=== PATIENT | female | born 1950 | race Two or more races ===

== ENCOUNTER 2017-07-23 11:10 | Emergency (ER) | payer MEDICAID, MEDICARE ==
--- NOTE | 2017-07-23 12:22 | RAD ---
HISTORY: Trauma, loss of consciousness COMPARISONS: None TECHNIQUE: Multiple contiguous axial CT scans were obtained of the head without intravenous contrast. FINDINGS: HEMORRHAGE/INFARCT: There is no hemorrhage or acute infarct. MASSES/SHIFT: There is no mass or shift. EXTRA-AXIAL SPACES: There are no extra-axial fluid collections. SULCI AND VENTRICLES: The sulci and ventricles are normal in size and position for the patient's stated age. CEREBRUM: There are no focal parenchymal abnormalities. BRAINSTEM: There are no focal parenchymal abnormalities. CEREBELLUM: There are no focal parenchymal abnormalities. VESSELS: The vessels are grossly normal. PARANASAL SINUSES: The paranasal sinuses are clear. ORBITS: The orbits are unremarkable. BONES AND SOFT TISSUE: No bone or soft tissue abnormalities are noted. OTHER: None IMPRESSION: NO ACUTE INTRACRANIAL PATHOLOGY.
--- NOTE | 2017-07-23 12:31 | ED ---
Nathan Mosquera Thomas, scribed for Stan Barron MD on 07/23/17 at 1124 . Head Injury - HPI Summary HPI Summary: The pt is a 67 y/o F presenting to the ED after she had LOC for a few seconds s/ p a fall from her chair that occurred today at 10:00. She fell backwards and struck her head on the floor. She says this is an accidental fall. Pt denies head pain, neck pain, back pain, nausea, or any other pain. She is not on blood thinners. PMHx: osteoarthritis. PSHx: breast surgery. SHx: no smoking, no alcohol use. FHx: CA. The patient is accompanied by her daughter, who acts as an linux security administrator because the patient speaks only Sierra Leonean. - History Of Current Complaint Chief Complaint: EDHeadInjury Stated Complaint: FALL/HIT HEAD Time Seen by Provider: 07/23/17 11:20 Hx Obtained From: Patient, Family/Psychiatric Tech - daughter is present, who acts as linux security administrator Mechanism Of Injury: Fall From Height Of: - fall from chair backwards Onset/Duration: Started Minutes Ago - fall was today at 10:00, Resolved Pain Intensity: 0 Pain Scale Used: 0-10 Numeric Aggravating Factor(s): Other: - None Alleviating Factor(s): Other: - Spontaneous resolution Associated Signs And Symptoms: LOC (Time In Secs./Mins/Hrs) - LOC for a few seconds, Other: - NEGATIVE: head pain, back pain, neck pain, nausea - Allergies/Home Medications Allergies/Adverse Reactions: Allergies Allergy/AdvReac Type Severity Reaction Status Date / Time No Known Allergies Allergy Verified 07/23/17 12:15 PMH/Surg Hx/FS Hx/Imm Hx Previously Healthy: No Cardiovascular History: Denies: Hx Myocardial Infarction Musculoskeletal History: Reports: Hx Arthritis - Cancer History Cancer Type, Location and Year: Skin cancer removal from nose - Surgical History Surgery Procedure, Year, and Place: breast surgery Infectious Disease History: No Infectious Disease History: Denies: Traveled Outside the [place] in Last 30 Days - Family History Known Family History: Positive: Other - [place] - Social History Alcohol Use: None Hx Substance Use: No Substance Use Type: Reports: None Hx Tobacco Use: No Smoking Status (MU): Never Smoked Tobacco Review of Systems Negative: Fever Negative: Nausea Negative: Other - NEGATIVE: head pain, back pain, neck pain Neurological: Other - Fall out of chair with LOC for a few seconds All Other Systems Reviewed And Are Negative: Yes Physical Exam Triage Information Reviewed: Yes Vital Signs On Initial Exam: Initial Vitals Temp Pulse Resp BP Pulse Ox 98.0 F 72 20 166/78 98 07/23/17 11:13 07/23/17 11:13 07/23/17 11:13 07/23/17 11:13 07/23/17 11:13 Vital Signs Reviewed: Yes Appearance: Positive: Well-Appearing, No Pain Distress Skin: Positive: Warm, Skin Color Reflects Adequate Perfusion Head/Face: Positive: Normal Head/Face Inspection Eyes: Positive: EOMI, SUNSHINE ENT: Positive: Normal ENT inspection Neck: Positive: Supple, Nontender Respiratory/Lung Sounds: Positive: Clear to Auscultation, Breath Sounds Present Cardiovascular: Positive: RRR. Negative: Murmur Abdomen Description: Positive: Nontender Musculoskeletal: Positive: Strength/ROM Intact Neurological: Positive: Sensory/Motor Intact, Alert, Oriented to Person Place, Time, CN Intact II-III, Normal Gait, Finger to Nose, Speech Normal Psychiatric: Positive: Normal - Ute Coma Scale Best Eye Response: 4 - Spontaneous Best Motor Response: 6 - Obeys Commands Best Verbal Response: 5 - Oriented Diagnostics - Vital Signs Vital Signs Temp Pulse Resp BP Pulse Ox 07/23/17 11:13 98.0 F 72 20 166/78 98 - Laboratory Lab Statement: Any lab studies that have been ordered have been reviewed, and results considered in the medical decision making process. - CT CT Brain CT Interpretation: No Acute Changes - CT Brain shows no acute intracranial pathology. ED physician has reviewed this report and agrees. CT Interpretation Completed By: Radiologist Head Injury Course/Dx Assessment/Plan: The pt is a 67 y/o F presenting to the ED after she had LOC for a few seconds s/p an accidental fall from her chair that occurred today in which she struck her head on the floor. Pt denies head pain, neck pain, back pain, nausea, or any pain. CT Brain shows no acute intracranial pathology. - Diagnoses Provider Diagnoses: Closed head injury, Hypertension Discharge - Discharge Plan Condition: Good Disposition: HOME Patient Education Materials: Head Injury (ED), Hypertension (ED) Referrals: Non Staff,Doctor [Primary Care Provider] - [facility] [place] [facility] [Outside] The documentation as recorded by the Nathan viadl Thomas accurately reflects the service I personally performed and the decisions made by me, Stan Barron MD.
[2017-07-23 12:48] VITALS: BP 162/70
== END 2017-07-23 12:47 | disposition home or self-care (01) ==
LOC: ED 11:10
DX: S09.90XA Unspecified injury of head, initial encounter (principal); I10 Essential (primary) hypertension; W08.XXXA Fall from other furniture, initial encounter; Y92.9 Unspecified place or not applicable; Z85.828 Personal history of other malignant neoplasm of skin
CPT/HCPCS: 70450; 99282

== ENCOUNTER 2018-11-29 14:37 | Inpatient (IN) | payer MEDICARE, MEDICAID ==
--- NOTE | 2018-11-29 15:09 | ED ---
Respiratory - HPI Summary HPI Summary: Pt is a 68 y/o F presenting to the ED with a chief respiratory complaint. She was born with one kidney so there are many medicines she cannot take. Pt reports cough onset about two weeks ago, fever with varying severity, intermittent dizziness, headache, and decreased appetite. On 11/27/18, she did not want to eat anything or shower. - History of Current Complaint Chief Complaint: EDFluSymptoms Stated Complaint: FLU LIKE SYMPTOMS Time Seen by Provider: 11/29/18 14:57 Hx Obtained From: Patient, Family/Boiler House Inspector - also furniture cleaner Onset/Duration: Gradual Onset, Lasting Weeks, Still Present Timing: Constant Initial Severity: Mild Current Severity: None Pain Intensity: 0 Character: Cough (Nonproductive), Dyspnea on Exertion Sputum Amount: None Aggravating Factor(s): Exertion, Movement, Deep Breaths Alleviating Factor(s): Nothing Associated Signs and Symptoms: Fever - Allergy/Home Medications Allergies/Adverse Reactions: Allergies Allergy/AdvReac Type Severity Reaction Status Date / Time No Known Allergies Allergy Verified 11/29/18 14:52 Home Medications: Home Medications Alendronate (NF) [Fosamax (NF)] 70 mg PO WEEKLY 11/29/18 [History Confirmed 09/06] Lisinopril TAB* [Prinivil TAB*] 10 mg PO DAILY 11/29/18 [History Confirmed 11/29] PMH/Surg Hx/FS Hx/Imm Hx Previously Healthy: Yes Cardiovascular History: Denies: Hx Myocardial Infarction History: Reports: Other Problems/Disorders - born with one kidney Musculoskeletal History: Reports: Hx Arthritis - Cancer History Cancer Type, Location and Year: Skin cancer removal from nose Hx Chemotherapy: No Hx Radiation Therapy: No - Surgical History Surgery Procedure, Year, and Place: breast surgery Infectious Disease History: No Infectious Disease History: Denies: Traveled Outside the [place] in Last 30 Days - Family History Known Family History: Positive: Other - [place] - Social History Alcohol Use: None Hx Substance Use: No Substance Use Type: Reports: None Hx Tobacco Use: No Smoking Status (MU): Never Smoked Tobacco Review of Systems Positive: Fever Positive: Cough Positive: Other - decreased appetite Positive: Headache, Weakness All Other Systems Reviewed And Are Negative: Yes Physical Exam - Summary Physical Exam Summary: Appearance: The patient is well-nourished in no acute distress and in no acute pain. Skin: The skin is warm and dry and skin color reflects adequate perfusion. HEENT: The head is normocephalic and atraumatic. The pupils are equal and reactive. The conjunctivae are clear and without drainage. Nares are patent and without drainage. Mouth reveals moist mucous membranes and the throat is without erythema and exudate. The external ears are intact. The ear canals are patent and without drainage. The tympanic membranes are intact. Neck: The neck is supple with full range of motion and non-tender. There are no carotid bruits. There is no neck vein distension. Respiratory: Chest is non-tender. Crackles in the lower L lung. Cardiovascular: Heart is tachycardic. There is no murmur or rub auscultated. There is no peripheral edema and pulses are symmetrical and equal. Abdomen: The abdomen is soft and non-tender. There are normal bowel sounds heard in all four quadrants and there is no organomegaly palpated. Musculoskeletal: There is no back tenderness noted. Extremities are non-tender with full range of motion. There is good capillary refill. There is no peripheral edema or calf tenderness elicited. Neurological: Patient is alert and oriented to person, place and time. The patient has symmetrical motor strength in all four extremities. Cranial nerves are grossly intact. Deep tendon reflexes are symmetrical and equal in all four extremities. Psychiatric: The patient has an appropriate affect and does not exhibit any anxiety or depression. Triage Information Reviewed: Yes Vital Signs On Initial Exam: Initial Vitals Temp Pulse Resp BP Pulse Ox 101 F 111 30 149/86 97 11/29/18 14:46 11/29/18 14:46 11/29/18 14:46 11/29/18 14:46 11/29/18 14:46 Vital Signs Reviewed: Yes Diagnostics - Vital Signs Vital Signs Temp Pulse Resp BP Pulse Ox 11/29/18 14:46 101 F 111 30 149/86 97 - Laboratory Result Diagrams: 11/29/18 15:15 11/29/18 15:15 Lab Statement: Any lab studies that have been ordered have been reviewed, and results considered in the medical decision making process. - Radiology Chest x-ray Radiology Interpretation Completed By: Radiologist Summary of Radiographic Findings: Bibasilar pneumonia. ED physician has reviewed this report. - CT Abd/pelv CT CT Interpretation Completed By: Radiologist Summary of CT Findings: 1. Patchy densities in the bilateral lungs could BE pneumonia in the correct clinical. setting. 2. Cholelithiasis without signs of biliary obstruction or acute inflammatory change. 3. Diverticulosis without acute inflammatory change consistent with diverticulitis. 4. Moderate size hiatal hernia. 5. Additional chronic and degenerative changes described in body the report. ED physician has reviewed this report. Disposition - Course Course Of Treatment: Ms. Hinojosa has been fighting URI symptoms for about a week. She's now developed a worse cough and fevers. She short of breath with exertion. She was nontoxic in appearance but she was tachycardic on arrival. She was placed on a monitor given IV fluids and a chest x-ray revealed a likely infiltrate. She was given Levaquin at that point and the hospitalist service was contacted for admission. - Diagnoses Provider Diagnoses: Pneumonia, Sepsis - Critical Care Time Critical Care Time: 30-74 min Discharge - Sign-Out/Discharge Documenting (check all that apply): Patient Departure - Discharge Plan Condition: Stable Disposition: ADMITTED TO [facility] - Billing Disposition and Condition Condition: STABLE Disposition: Admitted to [facility] - Attestation Statements Document Initiated by Xochiltibjeremías: Yes Documenting Scribe: Elvia Mcmanus Provider For Whom Fyl is Documenting (Include Credential): Patrice Pinon MD. Scribe Attestation: Elvia Mosquera, feliciaed for Patrice Pinon MD. on 11/29/18 at 2000. Scribe Documentation Reviewed: Yes Provider Attestation: The documentation as recorded by the Elvia vidal accurately reflects the service I personally performed and the decisions made by , Patrice Pinon MD. Status of Scribe Document: Viewed Consult Consult: [id number] - Spoke with Dr. Giraldo about the pt's condition who will be the accepting physician for the patient.
[2018-11-29] MEDS: NS 0.9% 1000 ML** 2,000 ML IV ONE (15:23)
[2018-11-29 15:34] LABS: INR 1.14 (0.77-1.02)
[2018-11-29 15:43] LABS: Influenza A Molecular NEGATIVE (Negative); Influenza B Molecular NEGATIVE (Negative)
[2018-11-29 15:44] LABS: Albumin 3.6 g/dL (3.2-5.2); Albumin/Globulin Ratio 0.8 (1-3); BUN/Creatinine Ratio 12.1 (8-20); C Reactive Protein 287.01 mg/L (<8.01); Calcium 8.5 mg/dL (8.6-10.3); EGFR Non-African American 37.2 (>60); Globulin 4.5 g/dL (2-4); Potassium 4.1 mmol/L (3.5-5.0); Total Bilirubin 0.6 mg/dL (0.2-1.0); Total Protein 8.1 g/dL (6.4-8.9)
[2018-11-29 15:45] LABS: Troponin I 0.01 ng/mL (<0.04)
[2018-11-29 15:55] LABS: Hematocrit 32 % (35-47); Hemoglobin 10.6 g/dl (12.0-16.0); Mean Corpuscular HGB Conc 33 g/dl (31-36); Mean Corpuscular Hemoglobin 24 pg (27-31); Mean Corpuscular Volume 74 fL (80-97); Mean Platelet Volume 9.1 fL (7.4-10.4); Platelet Count 390 10^3/ul (150-450); Red Blood Count 4.37 10^6/ul (4.00-5.40); Red Cell Distribution Width 15 % (10.5-15); White Blood Count 17.5 10^3/ul (3.5-10.8)
[2018-11-29] MEDS ORDERED: Levofloxacin 750 MG IVPREMIX(* 750 MG/150 ML BAG IVPB ONE (16:07)
[2018-11-29] MEDS ORDERED: NS 0.9% 1000 ML** 1,000 ML IV ONE (16:07)
[2018-11-29 16:17] LABS: Urine Appearance Cloudy; Urine Bacteria 1+ (Absent); Urine Bilirubin Negative (Negative); Urine Blood 1+ (Negative); Urine Color Yellow; Urine Glucose 1+(50 mg/dL) (Negative); Urine Ketones Negative (Negative); Urine Nitrite Negative (Negative); Urine Protein 2+(100 mg/dL) (Negative); Urine Red Blood Cell Trace(0-2/hpf) (Absent); Urine Specific Gravity 1.014 (1.010-1.030); Urine Squamous Epithelial Cell Present (Absent); Urine Urobilinogen Negative (Negative); Urine White Blood Cell 3+(>20/hpf) (Absent)
[2018-11-29 16:21] LABS: ABS Basophils 0.1 10^3/ul (0-0.2); ABS Eosinophils 0.1 10^3/ul (0-0.6); ABS Lymphocytes 2.1 10^3/ul (1.0-4.8); ABS Monocytes 1.5 10^3/ul (0-0.8); ABS Neutrophils 13.8 10^3/ul (1.5-7.7); ABS Nucleated RBC 0 10^3/ul; Eosinophil % 0.4 %; Lymphocyte % 11.9 %; Nucleated Red Blood Cells % 0
[2018-11-29] MEDS ORDERED: Magnesium Hydroxide LIQ* 30 ML UDC PO PRN (17:24)
[2018-11-29] MEDS ORDERED: Acetaminophen TAB* 325 MG PO PRN (17:24)
[2018-11-29] MEDS ORDERED: Al Hydrox/Mg Hydrox/Simet LIQ* 30 ML UDC PO PRN (17:24)
[2018-11-29] MEDS: NS 0.9% 1000 ML** 1,000 ML IV SCH (20:03)
[2018-11-29] MEDS: cefTRIAXone(*) 1 GM in NS 0.9% 50 ML* 50 ML IVPB SCH (20:03)
--- NOTE | 2018-11-29 20:07 | HP ---
CC: Dr. Eldridge; Dr. Marquis * HISTORY AND PHYSICAL: DATE OF ADMISSION: 11/29/18 PRIMARY CARE PROVIDER: Dr. Eldridge. CHIEF COMPLAINT: Intermittent fevers and cough. 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 She has been having intermittent fevers up to 101 degrees. Her cough had not been getting better, but worse. She saw her primary care provider approximately 4 days ago, but she never got prescribed any additional medications. She developed poor appetite and she urinated less frequently. She did not have any urinary symptoms of dysuria or lower abdominal pain. For the past 24 hours, she had 3 loose bowel movements, but denies abdominal pain. She appears to have bilateral lower lobe pneumonia on her chest x-ray. Her liver function tests are markedly elevated. She is going to be admitted with a diagnosis of pneumonia and sepsis. PAST MEDICAL HISTORY: 1. History of hypoplastic 1 kidney with history of chronic kidney disease stage 3. 2. History of osteoporosis. 3. History of skin carcinoma removed on the face. 4. History of benign right breast biopsy. 5. History of cataract surgery on the left eye. 6. History of left knee osteoarthritic pain with cortisone injections in the past. 7. History of tubal ligation. 8. Status post pelvic surgery in the past, likely it was uterine/bladder suspension. MEDICATIONS: Include: 1. Lisinopril 10 mg daily. 2. Fosamax 70 mg weekly. ALLERGIES: No known drug allergies. FAMILY HISTORY: Reviewed and noncontributory. SOCIAL HISTORY: The patient is visiting her daughter from [place]. She had been here for the past 1 year. There is no history of alcohol, tobacco, or drug use. She is baby sitting her 8-month-old grandchild. Her surrogate is her daughter, Cristina Ugalde. The patient is a full code. REVIEW OF SYSTEMS: Please see history of present illness. All the remaining 12 systems were reviewed with the patient and were otherwise negative. Please note also that the patient is Danish speaking and her daughter translates during the visit. PHYSICAL EXAMINATION VITAL SIGNS: Blood pressure of 120/78, heart rate of 86 and regular, respiratory rate 30, oxygen saturation 97% on room air, temperature of 101 that is maximum in the ER. HEENT: Head: Atraumatic, normocephalic. Eyes: Pupils are equal, reactive to light and accommodation. Oropharynx is clear. Mucosa dry. NECK: Supple. No JVD. No bruits bilaterally. RESPIRATORY: Bibasilar crackles, otherwise clear. CARDIOVASCULAR: Regular rate and rhythm. No murmur. ABDOMEN: Soft, nontender. Bowel sounds are present in all 4 quadrants. EXTREMITIES: There is no edema. Pulses are +2 bilaterally. No clubbing or cyanosis. NEURO EVALUATION: Speech is clear. Cranial nerves II through XII are grossly intact. Motor strength is 5/5 bilaterally. PSYCHIATRIC EVALUATION: Oriented x3 with no evidence of anxiety or depression. Primary is Danish speaking. SKIN: On evaluation of the skin, no ecchymotic areas or rashes noted. DIAGNOSTIC STUDIES/LAB DATA: Laboratory data shows sodium of 132, potassium 4.1, chloride 109, carbon dioxide 19, anion gap of 10, BUN 17, creatinine 1.4. Liver function tests showed bilirubin of 0.6, AST 161, ALT 171, alkaline phosphatase of 222. Lactic acid was 1.4. White blood cell count of 17.5, hemoglobin of 10.6, hematocrit of 32, MCV of 94, and platelets of 390. Urinalysis shows +3 esterase, +3 wbc's, +1 bacteria, negative for nitrites. Flu test was negative. Portable chest x-ray, impression: "Bibasilar pneumonia." CT of the abdomen and pelvis obtained without contrast, impression: "Patchy densities of the bilateral lungs could be pneumonia in the correct clinical setting. Cholelithiasis without signs of biliary obstruction or acute inflammatory change. Diverticulosis without acute inflammatory change consistent with diverticulitis. Moderate size hiatal hernia. Additional chronic and degenerative changes described in the body of the report." In the body of the report, it was noted that the right kidney is hypoplastic and the left kidney is normal in appearance. The liver, spleen, pancreas, and adrenal glands were grossly normal in appearance. ASSESSMENT AND PLAN: 1. The patient is septic likely due to pneumonia. The patient's liver function tests are also elevated. At this point, the patient is going to be admitted to the medical floor with a diagnosis of sepsis due to pneumonia. She is going to be treated with azithromycin and ceftriaxone. Sputum cultures are going to be obtained. 2. The patient has history of chronic kidney disease stage 3 with creatinine close to the baseline today. She is dehydrated and will continue intravenous fluids and lisinopril is going to be held. 3. The patient's liver function test elevation is at this point asymptomatic with normal bilirubin. The CT of the abdomen failed to show any abnormalities. I suspect that may be due to hypoperfusion secondary to sepsis. At this point , the patient is going to be treated with intravenous fluids and her liver function tests are going to be repeated in the morning. The patient does have gallstones in the gallbladder, but no evidence of common bile duct dilatation at this point. If she continues to have liver function test elevation tomorrow , she may need a dedicated ultrasound study of the gallbladder. 4. For her history of hypertension, her lisinopril is going to be held while she is dehydrated. 5. For DVT prophylaxis, the patient is moderate risk and she is going to be placed on heparin subcutaneously. 6. The patient's code status is full and her surrogate is her daughter. TIME SPENT: Approximately 72 minutes was spent on admission of this patient, more than half that time was spent [id number] with the patient during the interview and physical exam. [id number]/[facility] #: [id number] [place]
[2018-11-29] MEDS: Heparin VIAL(*) 5000 UNITS/ML VIAL (FIVE THOUSAND) SUBCUT SCH (21:50)
[2018-11-30] MEDS: Heparin VIAL(*) 5000 UNITS/ML VIAL (FIVE THOUSAND) SUBCUT SCH ×3 (06:18→22:23)
[2018-11-30] MEDS: NS 0.9% 1000 ML** 1,000 ML IV SCH ×2 (06:31→19:48)
[2018-11-30 07:06] LABS: ABS Basophils 0 10^3/ul (0-0.2); ABS Eosinophils 0.1 10^3/ul (0-0.6); ABS Lymphocytes 2.3 10^3/ul (1.0-4.8); ABS Monocytes 1.2 10^3/ul (0-0.8); ABS Nucleated RBC 0 10^3/ul; Eosinophil % 1.1 %; Hematocrit 28 % (35-47); Hemoglobin 8.8 g/dl (12.0-16.0); Lymphocyte % 18.5 %; Mean Corpuscular HGB Conc 32 g/dl (31-36); Mean Corpuscular Hemoglobin 24 pg (27-31); Mean Corpuscular Volume 75 fL (80-97); Mean Platelet Volume 8.9 fL (7.4-10.4); Nucleated Red Blood Cells % 0.1; Platelet Count 326 10^3/ul (150-450); Red Blood Count 3.64 10^6/ul (4.00-5.40); Red Cell Distribution Width 16 % (10.5-15); White Blood Count 12.7 10^3/ul (3.5-10.8)
[2018-11-30 07:13] LABS: Albumin 2.8 g/dL (3.2-5.2); Albumin/Globulin Ratio 0.7 (1-3); BUN/Creatinine Ratio 12.2 (8-20); Calcium 7.8 mg/dL (8.6-10.3); EGFR African American 56.4 (>60); EGFR Non-African American 46.6 (>60); Globulin 3.9 g/dL (2-4); Indirect Bilirubin 0.3 mg/dL (0.3-1.0); Total Bilirubin 0.4 mg/dL (0.2-1.0); Total Protein 6.7 g/dL (6.4-8.9)
[2018-11-30] MEDS: Benzocaine/Menthol LOZ* 1 LOZENGE PO PRN ×2 (10:56→19:47)
[2018-11-30] MEDS: cefTRIAXone(*) 1 GM in NS 0.9% 50 ML* 50 ML IVPB SCH (17:57)
--- NOTE | 2018-11-30 18:22 | PN ---
Subjective Date of Service: 11/30/18 Interval History: Patient seen and examined. OOB to shower with no SOB, has cough and sore throat primarily, no chest pain. Fevers improving. Objective Active Medications: Acetaminophen (Tylenol Tab*) 650 mg PO Q4H PRN PRN Reason: FEVER/PAIN Al Hydrox/Mg Hydrox/Simethicone (Maalox Plus*) 30 ml PO Q6H PRN PRN Reason: INDIGESTION Heparin Sodium (Porcine) (Heparin Vial(*)) 5,000 units SUBCUT Q8HR [facility] Last Admin: 11/30/18 16:01 Dose: 5,000 units Sodium Chloride (Ns 0.9% 1000 Ml) 1,000 mls @ 100 mls/hr IV PER RATE [facility] Last Admin: 11/30/18 06:31 Dose: 100 mls/hr Ceftriaxone Sodium 1 gm/ (Sodium Chloride) 50 mls @ 200 mls/hr IVPB Q24H [facility] Last Admin: 11/30/18 17:57 Dose: 200 mls/hr Azithromycin 500 mg/ Sodium (Chloride) 250 mls @ 250 mls/hr IVPB Q24H [facility] Magnesium Hydroxide (Milk Of Magnesia Liq*) 30 ml PO Q4H PRN PRN Reason: CONSTIPATION Throat Lozenges (Chloraseptic Selena*) 1 selena PO Q6H PRN PRN Reason: SORE THROAT Last Admin: 11/30/18 10:56 Dose: 1 selena Vital Signs - 8 hr 11/30/18 11/30/18 11:18 16:00 Temperature 99.4 F 98.0 F Pulse Rate 85 90 Respiratory 24 28 Rate Blood Pressure 141/76 159/80 (mmHg) O2 Sat by Pulse 97 98 Oximetry Oxygen Devices in Use Now: None Appearance: alert, NAD Eyes: No Scleral Icterus, PERRLA Ears/Nose/Mouth/Throat: NL Teeth, Lips, Gums, Mucous Membranes Moist Neck: NL Appearance and Movements; NL JVP, Trachea Midline Respiratory: - - bilateral expiratory wheeze Cardiovascular: NL Sounds; No Murmurs; No JVD, RRR, No Edema Abdominal: NL Sounds; No Tenderness; No Distention, No Hepatosplenomegaly Extremities: No Edema, No Clubbing, Cyanosis Skin: No Rash or Ulcers, No Nodules or Sclerosis Neurological: Alert and Oriented x 3, NL Sensation, NL Gait Nutrition: Taking PO's Result Diagrams: 11/30/18 06:24 11/30/18 06:24 Microbiology and Other Data: Microbiology 11/29/18 15:15 Aerobic Blood Culture - Preliminary Blood Venous No Growth Day 1 Anaerobic Blood Culture - Preliminary No Growth Day 1 11/29/18 15:15 Aerobic Blood Culture - Preliminary Blood Venous No Growth Day 1 Anaerobic Blood Culture - Preliminary No Growth Day 1 11/29/18 15:59 Urine Culture - Preliminary Urine Proteus Mirabilis 11/29/18 15:15 Influenza Types A,B Antigen - Final Nasal Specimen received for Influenza A/B Molecular testing Diagnostic Imaging: Patient Name: MATTHEW RANDALL Medical Record#: [id number] Ordering Physician: Patrice Pinon MD Acct.#: [id number] : 1950 Age: 68 Sex: F Location: EMERGENCY DEPARTMENT Exam Date: 11/29/18 1505 ADM Status: REG ER Order Information: CHEST AP OR PORT Accession Number: [id number] CPT: 43174 Indication: Cough, fever. Comparison: Report of June 26, 2008 Technique: Upright AP 1525 hours Report: Bilateral lower lung zone alveolar consolidation consistent with pneumonia given the clinical context. Negative for pleural effusion or pneumothorax. Upper normal heart size accounting for AP technique. Unremarkable central pulmonary vasculature and mediastinal contours. IMPRESSION: #. Bibasilar pneumonia. <Electronically signed by Stan Harris MD in OV> 11/29/181547 Dictated By: Stan Harris MD Dictated Date/Time: 11/29/181547 Transcribed Date/Time: 11/29/18 1546 Patient Name: MATTHEW RANDALL Medical Record#: [id number] Ordering Physician: Shilpi Jerome NP Acct.#: [id number] : 1950 Age: 68 Sex: F Location: [address] [place] [address] Exam Date: 11/30/18 0846 ADM Status: ADM IN Order Information: US LIVER Accession Number: [id number] CPT: 59484 HISTORY: Transaminitis. Relevant medical history includes congenital absence of the right kidney. COMPARISONS: CT of the abdomen and pelvis November 29, 2018 TECHNIQUE: Multiple transverse and longitudinal ultrasound images were obtained of the right upper quadrant. FINDINGS: LIVER: The liver is normal in dimensions and echogenicity. Normal hepatic and portal venous blood flow is duplicated with color flow imaging. There is no gross intrahepatic biliary duct dilatation. GALLBLADDER AND EXTRAHEPATIC BILIARY DUCT: Evaluation of the gallbladder is limited due to shadowing from a large intraluminal stone. Corresponding to the imaging seen on the previous day's CT there is a gallstone measuring at least 1.6 cm in greatest dimension. There is no definite pericholecystic fluid or definite wall thickening. The common bile duct exhibits a maximum diameter measurement of 4 mm. PANCREAS: Overlying bowel gas prevents meaningful image of the pancreas. RIGHT KIDNEY: The right kidney is atrophic, reportedly on a congenital basis. AORTA AND IVC: The visualized portions are normal in appearance and not pathologically dilated. IMPRESSION: CHOLELITHIASIS WITHOUT DEFINITE SONOGRAPHIC EVIDENCE OF ACUTE INFLAMMATORY CHANGE OR BILIARY OBSTRUCTION. <Electronically signed by Fan Means MD in OV> 11/30/18 151 Dictated By: Fan Measn MD Dictated Date/Time: 11/30/18 1514 Transcribed Date/Time: 11/30/18 1509 Assess/Plan/Problems-Billing Assessment: This is a 68 year old primarily Vietnamese speaking female with history of solitary single kidney, CKD and hypertension that presented to ER with complaints of cough, fever and SOB, found to have bilateral CAP and transaminitis. - Patient Problems (1) CAP (community acquired pneumonia) Status: Acute Code(s): J18.9 - PNEUMONIA, UNSPECIFIED ORGANISM SNOMED Code(s ): 374742738 Comment: - Wtih sepsis on admission now resolved with hydration and antibiotics - With associated fever, cough and leukocytosis, now improving - Continue ceftriaxone and azithromycin - monitor labs and temps (2) CKD (chronic kidney disease) Code(s): N18.9 - CHRONIC KIDNEY DISEASE, UNSPECIFIED SNOMED Code(s): 637856095 Comment: - With history of congenital solitary kidney - Renal function at baseline - Continue to monitor, avoid nephrotoxic meds (3) HTN (hypertension) Code(s): I10 - ESSENTIAL (PRIMARY) HYPERTENSION SNOMED Code(s): 94598740 Comment: - Stable on lisinopril (4) Transaminitis Code(s): R74.0 - NONSPEC ELEV OF LEVELS OF TRANSAMNS & LACTIC ACID DEHYDRGNSE SNOMED Code(s): 342629366 Comment: - Etiology unclear - US liver as above, does not appear to have new pathology, may be sepsis/ dehydration - Follow labs in AM (5) DVT prophylaxis Code(s): YAM3460 - SNOMED Code(s): 161925256 Comment: - HSQ (6) Full code status Code(s): Z78.9 - OTHER SPECIFIED HEALTH STATUS SNOMED Code(s): 866626609 Status and Disposition: Inpatient, dispo to home when medically stable.
[2018-11-30] MEDS: Lisinopril TAB* 5 MG PO SCH (19:46)
[2018-11-30] MEDS: Azithromycin IV(*) 500 MG in NS 0.9% 250 ML* 250 ML IVPB SCH (19:55)
[2018-12-01] MEDS: Heparin VIAL(*) 5000 UNITS/ML VIAL (FIVE THOUSAND) SUBCUT SCH ×3 (05:29→20:31)
[2018-12-01] MEDS: NS 0.9% 1000 ML** 1,000 ML IV SCH (06:44)
[2018-12-01 07:05] LABS: Hematocrit 29 % (35-47); Mean Corpuscular HGB Conc 31 g/dl (31-36); Mean Corpuscular Hemoglobin 24 pg (27-31); Mean Corpuscular Volume 76 fL (80-97); Mean Platelet Volume 8.8 fL (7.4-10.4); Platelet Count 359 10^3/ul (150-450); Red Blood Count 3.82 10^6/ul (4.00-5.40); Red Cell Distribution Width 16 % (10.5-15); White Blood Count 12.5 10^3/ul (3.5-10.8)
[2018-12-01 07:24] LABS: Albumin 2.9 g/dL (3.2-5.2); Albumin/Globulin Ratio 0.7 (1-3); BUN/Creatinine Ratio 10.7 (8-20); Calcium 8.3 mg/dL (8.6-10.3); EGFR African American 53.2 (>60); Potassium 3.7 mmol/L (3.5-5.0); Total Bilirubin 0.3 mg/dL (0.2-1.0); Total Protein 6.9 g/dL (6.4-8.9)
[2018-12-01 08:13] LABS: ABS Basophils 0 10^3/ul (0-0.2); ABS Eosinophils 0.3 10^3/ul (0-0.6); ABS Lymphocytes 2.8 10^3/ul (1.0-4.8); ABS Monocytes 0.9 10^3/ul (0-0.8); ABS Neutrophils 8.5 10^3/ul (1.5-7.7); ABS Nucleated RBC 0 10^3/ul; Eosinophil % 2.1 %; Lymphocyte % 22.6 %; Nucleated Red Blood Cells % 0; Polychromasia 1+
[2018-12-01] MEDS: Lisinopril TAB* 5 MG PO SCH (11:10)
--- NOTE | 2018-12-01 18:45 | PN ---
Subjective Date of Service: 12/01/18 Interval History: Patient seen and examined. Translation assistance with NISHA Enriquez at bedside. Patient states she is feeling better today, less SOB, no chest pain. Denies fevers or chills, no abdominal pain. Family at bedside. Objective Active Medications: Acetaminophen (Tylenol Tab*) 650 mg PO Q4H PRN PRN Reason: FEVER/PAIN Al Hydrox/Mg Hydrox/Simethicone (Maalox Plus*) 30 ml PO Q6H PRN PRN Reason: INDIGESTION Heparin Sodium (Porcine) (Heparin Vial(*)) 5,000 units SUBCUT Q8HR [facility] Last Admin: 12/01/18 14:56 Dose: 5,000 units Sodium Chloride (Ns 0.9% 1000 Ml) 1,000 mls @ 100 mls/hr IV PER RATE [facility] Last Admin: 12/01/18 06:44 Dose: 100 mls/hr Ceftriaxone Sodium 1 gm/ (Sodium Chloride) 50 mls @ 200 mls/hr IVPB Q24H [facility] Last Admin: 11/30/18 17:57 Dose: 200 mls/hr Azithromycin 500 mg/ Sodium (Chloride) 250 mls @ 250 mls/hr IVPB Q24H [facility] Last Admin: 11/30/18 19:55 Dose: 250 mls/hr Lisinopril (Prinivil Tab*) 5 mg PO DAILY [facility] Last Admin: 12/01/18 11:10 Dose: 5 mg Magnesium Hydroxide (Milk Of Magnesia Liq*) 30 ml PO Q4H PRN PRN Reason: CONSTIPATION Throat Lozenges (Chloraseptic Selena*) 1 selena PO Q6H PRN PRN Reason: SORE THROAT Last Admin: 11/30/18 19:47 Dose: 1 selena Vital Signs - 8 hr 12/01/18 12/01/18 12:10 15:28 Temperature 98.7 F 98.1 F Pulse Rate 73 69 Respiratory 17 16 Rate Blood Pressure 142/68 132/68 (mmHg) O2 Sat by Pulse 97 97 Oximetry Oxygen Devices in Use Now: None Appearance: alert, NAD Eyes: No Scleral Icterus, PERRLA Ears/Nose/Mouth/Throat: NL Teeth, Lips, Gums, Mucous Membranes Moist Neck: NL Appearance and Movements; NL JVP, Trachea Midline Respiratory: Symmetrical Chest Expansion and Respiratory Effort, - - mildly diminished, no rales or rhonchi, wheeze improved Cardiovascular: NL Sounds; No Murmurs; No JVD, RRR, No Edema Abdominal: NL Sounds; No Tenderness; No Distention, No Hepatosplenomegaly Extremities: No Edema, No Clubbing, Cyanosis Skin: No Rash or Ulcers Neurological: Alert and Oriented x 3, NL Sensation, NL Gait Nutrition: Taking PO's Result Diagrams: 12/01/18 06:54 12/01/18 06:50 Microbiology and Other Data: Microbiology 11/29/18 15:15 Aerobic Blood Culture - Preliminary Blood Venous No Growth Day 1 Anaerobic Blood Culture - Preliminary No Growth Day 1 11/29/18 15:15 Aerobic Blood Culture - Preliminary Blood Venous No Growth Day 1 Anaerobic Blood Culture - Preliminary No Growth Day 1 11/29/18 15:59 Urine Culture - Preliminary Urine Proteus Mirabilis 11/29/18 15:15 Influenza Types A,B Antigen - Final Nasal Specimen received for Influenza A/B Molecular testing Diagnostic Imaging: Patient Name: MATTHEW RANDALL Medical Record#: [id number] Ordering Physician: Patrice Pinon MD Acct.#: [id number] : 1950 Age: 68 Sex: F Location: EMERGENCY DEPARTMENT Exam Date: 11/29/18 1505 ADM Status: REG ER Order Information: CHEST AP OR PORT Accession Number: [id number] CPT: 97696 Indication: Cough, fever. Comparison: Report of June 26, 2008 Technique: Upright AP 1525 hours Report: Bilateral lower lung zone alveolar consolidation consistent with pneumonia given the clinical context. Negative for pleural effusion or pneumothorax. Upper normal heart size accounting for AP technique. Unremarkable central pulmonary vasculature and mediastinal contours. IMPRESSION: #. Bibasilar pneumonia. <Electronically signed by Stan Harris MD in OV> 11/29/181547 Dictated By: Stan Harris MD Dictated Date/Time: 11/29/181547 Transcribed Date/Time: 11/29/181545 Patient Name: MATTHEW RANDALL Medical Record#: [id number] Ordering Physician: Shilpi Jerome NP Acct.#: [id number] : 1950 Age: 68 Sex: F Location: [address] [place] [address] - MEDICAL Exam Date: 11/30/18845 ADM Status: ADM IN Order Information: US LIVER Accession Number: [id number] CPT: 53637 HISTORY: Transaminitis. Relevant medical history includes congenital absence of the right kidney. COMPARISONS: CT of the abdomen and pelvis November 29, 2018 TECHNIQUE: Multiple transverse and longitudinal ultrasound images were obtained of the right upper quadrant. FINDINGS: LIVER: The liver is normal in dimensions and echogenicity. Normal hepatic and portal venous blood flow is duplicated with color flow imaging. There is no gross intrahepatic biliary duct dilatation. GALLBLADDER AND EXTRAHEPATIC BILIARY DUCT: Evaluation of the gallbladder is limited due to shadowing from a large intraluminal stone. Corresponding to the imaging seen on the previous day's CT there is a gallstone measuring at least 1.6 cm in greatest dimension. There is no definite pericholecystic fluid or definite wall thickening. The common bile duct exhibits a maximum diameter measurement of 4 mm. PANCREAS: Overlying bowel gas prevents meaningful image of the pancreas. RIGHT KIDNEY: The right kidney is atrophic, reportedly on a congenital basis. AORTA AND IVC: The visualized portions are normal in appearance and not pathologically dilated. IMPRESSION: CHOLELITHIASIS WITHOUT DEFINITE SONOGRAPHIC EVIDENCE OF ACUTE INFLAMMATORY CHANGE OR BILIARY OBSTRUCTION. <Electronically signed by Fan Means MD in OV> 11/30/18 1514 Dictated By: Fan Means MD Dictated Date/Time: 11/30/18 1514 Transcribed Date/Time: 11/30/18 1503 Assess/Plan/Problems-Billing Assessment: This is a 68 year old primarily Burundian speaking female with history of solitary single kidney, CKD and hypertension that presented to ER with complaints of cough, fever and SOB, found to have bilateral CAP and transaminitis. - Patient Problems (1) CAP (community acquired pneumonia) Status: Acute Code(s): J18.9 - PNEUMONIA, UNSPECIFIED ORGANISM SNOMED Code(s ): 978637514 Comment: - Wtih sepsis on admission now resolved with hydration and antibiotics - With associated fever, cough and leukocytosis, now improving - Continue ceftriaxone and azithromycin - monitor labs and temps (2) CKD (chronic kidney disease) Code(s): N18.9 - CHRONIC KIDNEY DISEASE, UNSPECIFIED SNOMED Code(s): 743272887 Comment: - With history of congenital solitary kidney - Renal function at baseline - Continue to monitor, avoid nephrotoxic meds (3) HTN (hypertension) Code(s): I10 - ESSENTIAL (PRIMARY) HYPERTENSION SNOMED Code(s): 31465705 Comment: - Stable on lisinopril (4) Transaminitis Code(s): R74.0 - NONSPEC ELEV OF LEVELS OF TRANSAMNS & LACTIC ACID DEHYDRGNSE SNOMED Code(s): 774385382 Comment: - Etiology unclear - US liver as above, does not appear to have new pathology, may be sepsis/ dehydration - LFTs trending down (5) DVT prophylaxis Code(s): XEZ5046 - SNOMED Code(s): 853461400 Comment: - HSQ (6) Full code status Code(s): Z78.9 - OTHER SPECIFIED HEALTH STATUS SNOMED Code(s): 399198523 Status and Disposition: Inpatient, dispo to home when medically stable, if she remains afebrile through the night, will consider DC tomorrow afternoon.
[2018-12-01] MEDS: cefTRIAXone(*) 1 GM in NS 0.9% 50 ML* 50 ML IVPB SCH (18:49)
[2018-12-01] MEDS: Azithromycin IV(*) 500 MG in NS 0.9% 250 ML* 250 ML IVPB SCH (19:14)
[2018-12-02] MEDS: Heparin VIAL(*) 5000 UNITS/ML VIAL (FIVE THOUSAND) SUBCUT SCH ×2 (05:21→16:36)
[2018-12-02] MEDS: Lisinopril TAB* 5 MG PO SCH (10:28)
[2018-12-02 14:56] VITALS: BP 142/79
--- NOTE | 2018-12-02 20:58 | DS ---
CC: Dr. Eldridge * DISCHARGE SUMMARY: DATE OF ADMISSION: 11/29/18 DATE OF DISCHARGE: 12/02/18 PRIMARY CARE PROVIDER: Dr. Eldridge. MY ATTENDING FOR TODAY: Dr. Luna.* (DICTATED BY TAMIKA OLIVER NP) HOSPITAL COURSE: Please refer to admission H and P dated 11/29/18, however, in short, this is a very pleasant Qatari-speaking female patient, 68 years old, with medical history significant for hypoplastic single kidney, congenital with chronic kidney disease and hypertension. The patient states she has been having progressive cough for the 2 weeks prior to her admission. Also noted some subjective fevers and chills when she was home. The patient became slightly more short of breath and she was brought to the emergency department for evaluation by her family. Chest imaging noted that she had bilateral pneumonia. Also, her liver function tests were markedly elevated with an unclear etiology. Her CKD was, however, at her baseline. For these reasons, she was admitted for inpatient treatment of her bilateral pneumonia. Her urinalysis was negative. Flu test was also negative. CT of the abdomen and pelvis was also obtained given her elevated liver function where patchy densities of the bilateral lungs were noted. She has some diverticulosis and some inflammatory changes. She had moderate-sized hiatal hernia and noted that her right kidney is hypoplastic in nature, which is her baseline; however, given that her liver function was not returning to baseline, initially we attributed this to acute dehydration and infection. However, we did send her for dedicated ultrasound of the liver on 11/30/18. The ultrasound of the liver was essentially unremarkable. She had some cholelithiasis, but no definite sonographic evidence of acute inflammatory changes and no biliary obstruction. Liver was normal in dimensions and echogenicity and normal hepatic and portal venous blood flow was noted with no gross intrahepatic biliary duct dilatation. The patient's cough was relieved. She did not have any shortness of breath. She had no desaturations. She stated her breathing felt overall improved over the last 24 hours and she remained afebrile. The patient was stabilized for discharge to home on 12/02/18. With the help of translation from our nursing staff, we explained to the patient and to her family what her discharge plan of care would be. DISCHARGE DIAGNOSES: 1. Bilateral pneumonia, community acquired. 2. History of hypoplastic kidney with chronic kidney disease at baseline. 3. History of hypertension, on lisinopril, stable. 4. History of osteoporosis, currently stable. 5. Transaminitis, etiology unclear and resolving. DISCHARGE MEDICATIONS: Include: 1. Lisinopril 10 mg p.o. daily. 2. Alendronate 70 mg p.o. weekly. 3. Ceftin 500 mg p.o. b.i.d. for 4 more days. 4. Tessalon caps 100 mg p.o. 3 times a day as needed. 5. Chloraseptic lozenges 1 lozenge p.o. q.6 hours as needed. REVIEW OF SYSTEMS ON THE DAY OF DISCHARGE: The patient denies any fever, fatigue, or chills. No dizziness. Mild cough, mildly productive. No shortness of breath. No chest pain. No abdominal pain. No nausea. No vomiting. No urinary complaints. No arthralgias or myalgias and no further constitutional complaints. PHYSICAL EXAM: Reveals a well-appearing female, in no acute distress. Her vital signs are blood pressure 142/79, heart rate 81, respiratory rate 18, O2 saturation 98% on room air with a temperature of 98.4. HEENT: The patient is atraumatic, normocephalic. PERRLA with nonicteric sclerae. Oral mucosa is moist. Tongue is midline. Neck is supple, no thyromegaly noted and no carotid bruit auscultated. Cardiovascular: S1, S2 present. No murmurs, gallops, or rubs noted. Rate and rhythm are regular. Lungs are clear bilaterally to auscultation with good air entry, slightly diminished at the right base. No bronchi or rales appreciated. Abdomen is soft, nontender, nondistended. Positive bowel sounds in all 4 quadrants. No hepatomegaly noted. was deferred. Musculoskeletal: There is no clubbing, no cyanosis, no pedal edema. She has full range of motion. Gross motor and sensation are intact and steady gait with no assistance. Neurologic: She is grossly intact with no focal deficits. Psychiatric: Cooperative and appropriate. LABORATORY DATA: WBCs 12.5, down from 17.5; RBCs 3.82; hemoglobin 9.0; hematocrit 29; platelets 359. Sodium 139; potassium 3.7; chloride 113; CO2 of 15; BUN 13; creatinine 1.21, which is her baseline; GFR is 44.0, which is her baseline; glucose 158. Calcium 8.3. Bilirubin 0.30; AST 56, down from 161; ALT 113, down from 171; alk phos 168, down from 222. Troponin was negative at 0.01. CRP was 287.01. Total protein 6.9, albumin 2.9, globulin 4.0. Influenza A and B were negative. INR was 1.14. Urinalysis showed 2+ protein, 1+ blood, negative for nitrites, 1+ bacteria. DISPOSITION: The patient was discharged to home and care of family in stable condition. FOLLOWUPS: The patient was instructed to follow up with her primary care provider within 1 week, especially to have her lungs listened to and recheck her renal function and her liver function to ensure resolution of her abnormal values. DIET: The patient should have heart healthy diet as tolerated. ACTIVITY: Progress as tolerated. TIME SPENT: Approximately 45 minutes interfacing with the patient and her family and nursing staff on discharge plan of care. TAMIKA OLIVER NP [id number]/[facility] #: [id number] DAY[place]
== END 2018-12-02 17:00 | disposition home or self-care (01) | DRG 871 ==
LOC: ED 14:37 → MED 17:24
PROVIDERS: ADMIT Internal Medicine; ATTEND Internal Medicine
DX: A41.9 Sepsis, unspecified organism (principal); J18.9 Pneumonia, unspecified organism; Q60.3 Renal hypoplasia, unilateral; Q60.0 Renal agenesis, unilateral; I13.0 Hypertensive heart and chronic kidney disease with heart failure and stage 1 through stage 4 chronic kidney disease, or unspecified chronic kidney disease; K80.20 Calculus of gallbladder without cholecystitis without obstruction; K57.90 Diverticulosis of intestine, part unspecified, without perforation or abscess without bleeding; K44.9 Diaphragmatic hernia without obstruction or gangrene; N18.3 Chronic kidney disease, stage 3 (moderate); R74.0 Nonspecific elevation of levels of transaminase and lactic acid dehydrogenase [LDH]; E86.0 Dehydration; J02.9 Acute pharyngitis, unspecified; M81.0 Age-related osteoporosis without current pathological fracture; M17.12 Unilateral primary osteoarthritis, left knee; Z85.828 Personal history of other malignant neoplasm of skin; Z98.51 Tubal ligation status; Z80.9 Family history of malignant neoplasm, unspecified; Z98.42 Cataract extraction status, left eye
CPT/HCPCS: 36415; 71045; 74176; 76705; 80048; 80053; 80076; 81003; 81015; 83605; 84484; 85025; 85610; 86140; 87040; 87077; 87086; 87186; 99284; A9270-GY; J0456; J0696; J1644